=== PATIENT | male | born 1970 | race Caucasian/White ===

== ENCOUNTER 2018-06-13 11:19 | Outpatient (CLI) | payer OTHER, BC ==
[2013-04-06 10:11] VITALS: O2SAT 93
== END 2018-06-13 11:20 | disposition home or self-care (01) | DRG 561 ==
LOC: CONVCARE 11:19
PROVIDERS: ATTEND Orthopaedic Surgery
DX: Z47.89 Encounter for other orthopedic aftercare (principal); Z98.890 Other specified postprocedural states
CPT/HCPCS: 73030

== ENCOUNTER 2018-09-26 11:42 | Outpatient (CLI) | payer OTHER, BC | END 2018-09-26 11:43 | disposition home or self-care (01) | LOC: CONVCARE 11:43 ==